=== PATIENT | female | born 1970 | race Caucasian/White ===

== ENCOUNTER 2024-02-04 16:37 | Emergency (ER) | payer MEDICAID ==
[~2024-02-04] VITALS: Ht 162.6 cm; Wt 60.0 kg
[2024-02-04 17:37] VITALS: O2SAT 99
[2024-02-04] MEDS ORDERED: TOPUD PO (19:44)
[2024-02-04 21:25] VITALS: BP 133/82; PULSE 71; RESP 19; TEMP 36.61404; O2SAT 98
== END 2024-02-04 21:30 | disposition home or self-care (01) ==
LOC: ER 16:37
DX: M79.18 Myalgia, other site (principal); F19.90 Other psychoactive substance use, unspecified, uncomplicated; Z98.890 Other specified postprocedural states; Z88.0 Allergy status to penicillin
CPT/HCPCS: 71101; 99284